=== PATIENT | male | born 2005 | race Two or more races ===

== ENCOUNTER 2025-02-19 11:28 | Emergency (ER) | payer MEDICAID, SELFPAY ==
[2025-02-19 11:29] VITALS: BMI 48.7
[2025-02-19 11:44] VITALS: BP 156/86; PULSE 74; RESP 18; TEMP 36.8; O2SAT 97
--- NOTE | 2025-02-19 11:51 | PD.EDWOUND ---
ED Wound/Laceration-RME/HPI General Chief Complaint: Wound/Laceration Stated Complaint: 4TH DIGIT LAC Time Seen by Provider: 02/19/25 11:40 Arrival date/time: 02/19/25 11:28 20-year-old male presents emergency department t today for complaint of laceration to his hand patient reports he was opening a can of beans and injured his right hand ring finger and index finger Limitations: no limitations Related Data Previous Rx's ?Medication ?Instructions ?Recorded ibuprofen 800 mg tablet 800 mg PO Q6H PRN pain #30 tabs 11/07/19 cyclobenzaprine 5 mg tablet 5 mg PO Q8H PRN muscle pain #20 08/28/23 tabs ibuprofen 600 mg tablet 600 mg PO Q6H PRN pain #30 tabs 08/28/23 Allergies Allergy/AdvReac Type Severity Reaction Status Date / Time No Known Allergies Allergy Verified 02/19/25 11:31 Review of Systems Review of Systems Systems Reviewed: All systems reviewed, normal except as documented Constitutional Constitutional: Reports system reviewed and no additional complaints, except as documented, Denies fever(s) and Denies headache(s) Eyes Eyes: Reports system reviewed and no additional complaints, except as documented and Denies blurry vision ENT Ears, Nose, Mouth, and Throat: Reports system reviewed and no additional complaints, except as documented, Denies headache(s), Denies nasal congestion and Denies nasal discharge Cardiovascular Cardiovascular: Reports system reviewed and no additional complaints, except as documented, Denies chest pain and Denies dyspnea Respiratory Respiratory: Reports system reviewed and no additional complaints, except as documented, Denies chest congestion, Denies cough and Denies dyspnea Gastrointestinal Gastrointestinal: Reports system reviewed and no additional complaints, except as documented and Denies abdominal pain Integumentary/Breasts Skin/Breast: Reports system reviewed and no additional complaints, except as documented, Denies rash and Reports wounds (Laceration right hand) Neurologic Neurologic: Reports system reviewed and no additional complaints, except as documented, Reports as per HPI and Denies headache(s) Past Medical History Past Medical History NEUROLOGIC: Negative Cerebrovascular Accident, Alzheimer's Disease or Meningitis CARDIAC: Negative Myocardial Infarction, Angina or Atherosclerotic Heart Disease RESPIRATORY: Negative Chronic Obstructive Pulmonary Disease (COPD), Emphysema or Cystic Fibrosis GASTROINTESTINAL: Negative Liver Cancer or Pancreatic Cancer GENITOURINARY: Negative Genitourinary Disorders MUSCULOSKELETAL: Negative Muscular Dystrophy or Bone Cancer ENT: Negative Blind or Deafness ENDOCRINE: Negative Endocrine Disorders, Diabetes Mellitus Type 1 or Diabetes Mellitus Type 2 OTHER HISTORY: Negative Down Syndrome or Developmental Delay Social History SMOKING STATUS: Current some day smoker SUBSTANCE USE: does not use ED Exam General Limitations: Present no limitations General appearance: Present alert and in no apparent distress Head Head exam: Present atraumatic Eye Eye exam: Present normal appearance, PERRL and EOMI ENT ENT exam: Present normal exam, normal oropharynx and mucous membranes moist Neck Neck exam: Present normal inspection, full ROM and trachea midline Chest Chest inspection: Present normal inspection and symmetric chest wall rise Respiratory Respiratory exam: Present normal lung sounds bilaterally Cardiovascular Cardiovascular exam: Present regular rate, normal rhythm and normal heart sounds Abdominal Exam Abdominal exam: Present soft and normal bowel sounds Extremities Exam Extremities exam: Present full ROM, tenderness, normal capillary refill and other (Laceration hand fingers); Absent joint swelling Back Exam Back exam: Present normal inspection and full ROM Neurological Exam Neurological exam: Present alert, oriented X3 and CN II-XII intact Psychiatric Psychiatric exam: Present normal affect and normal mood Skin Skin exam: Present warm, dry and other (Laceration right hand fingers) Course Quality Measures none Orders Category Date Time Status Set Up Suture Tray STAT Care 02/19/25 11:52 Completed Wound Care NOW Care 02/19/25 11:52 Completed Lidocaine 1% 20 ml [Xylocaine 1% 20 ML] Med 02/19/25 11:52 Discontinued 20 ml INFL X1 ONE Vital Signs Vital signs: Vital Signs Temperature 98.2 F 02/19/25 11:44 Pulse Rate 74 02/19/25 11:44 Respiratory Rate 18 02/19/25 11:44 Blood Pressure 156/86 H 02/19/25 11:44 Pulse Oximetry (%) 97 02/19/25 11:44 Oxygen Delivery Method Room Air 02/19/25 11:44 O2 saturation 97% on room air within normal limits Procedures -ED Laceration Laceration 1: Site: hand Side (If applicable): right Size (cm): 2 Description: irregular Depth: simple, single layer Local Anesthetic: lidocaine 1% Amount of anesthesia used (mL): 2 Pre-repair: wound explored and irrigated extensively Skin layer closed with: nylon Size (cm): 4-0 Number of sutures: 2 Technique: simple, interrupted Laceration 2: Site: hand Side (If applicable): right Size (cm): 3 Description: linear Depth: simple, single layer Local Anesthetic: lidocaine 1% Amount of anesthesia used (mL): 8 Pre-repair: irrigated extensively Skin layer closed with: nylon Size (cm): 4-0 Number of sutures: 5 Technique: simple, interrupted Wound / Laceration MDM Narrative MDM Narrative:: 20-year-old male presents emergency department t today for complaint of laceration to his hand patient reports he was opening a can of beans and injured his right hand ring finger and index finger On exam patient has laceration right hand ring finger as well as index finger lacerations repaired no evidence of tendon ligamentous injury both laceration on the palmar aspect Patient discharged home in no distress to follow-up with primary care doctor in the next 24 to 48 hours and for any worsening symptoms to return to the ER immediately Patient data External records reviewed:: [facility] previous records Clinical information provided by:: patient Social determinants that could affect healthcare access:: none Patient has the following chronic illnesses:: None How is presenting disease/condition affected by chronic disease/condition?: no chronic disease Evaluation data The following diagnostics were reviewed and interpreted by me:: other (specify) (N/A) Lab and/or radiology exams considered but not ordered:: Consider not ordered Interpretation Summary: N/A Medications / Prescriptions Medications or Prescriptions considered but not ordered:: Given Medication administrations:: Medication Administration History Discontinued Medications Lidocaine HCl (Lidocaine Hcl 1% 20 Ml Vial) 20 ml INFL X1 ONE Stop: 02/19/25 11:53 Last Admin: 02/19/25 12:12 Dose: 20 ml Documented By: OA Comments: USED BY PROVIDER Given Consultations Consultation(s) initiated? (list below): No Diagnosis Wound Differential Diagnosis: laceration, abrasion and avulsion of skin Most likely diagnosis given after review of the tests above:: Laceration Admission Indicated Admission indicated?: not indicated Admission Request Was there a request for admission?: No Disposition Plan Disposition Plan: Discharge Discharge Attestation Discharge Attestation: The patient and all family members were given an opportunity to ask questions and understood the discharge instructions. Discharge instructions specifically effects, indications for sooner follow up or return to the emergency department, and the expected course of current diagnosis. Patient condition: Stable Discharge Plan Plan Patient Disposition: HOME (Self Care) Discharge Disposition comment: Stable Prescriptions/Referrals Prescriptions/Med Rec: No Action ibuprofen 800 mg tablet 800 mg PO Q6H PRN (Reason: pain) Qty: 30 0RF ibuprofen 600 mg tablet 600 mg PO Q6H PRN (Reason: pain) Qty: 30 0RF cyclobenzaprine 5 mg tablet 5 mg PO Q8H PRN (Reason: muscle pain) Qty: 20 0RF Problem List Clinical Impression: Laceration of hand, right Patient/Caregiver Discharge Instructions Education Materials: ED Laceration: All Closures Additional Instructions: Please follow up with your primary care doctor in the next 24-48hrs for any worsening symptoms return here immediately Please have suture removed in 10 days Print Language: Syriac Stand Alone Forms: Larissa Award Info., Patient Portal Info Letter PA/VIRTUAL REALITY SPECIALIST Supervising Physician PA/VIRTUAL REALITY SPECIALIST Supervising Physician: Dr. miles
[2025-02-19] MEDS: LIDOCAINE HCL 1% 20 ML VIAL INFL (12:12)
== END 2025-02-19 12:20 | disposition home or self-care (01) ==
LOC: SERX 12:10
PROVIDERS: Emergency Provider Family Medicine; PCP Family Medicine
DX: S61.210A Laceration without foreign body of right index finger without damage to nail, initial encounter (principal); S61.214A Laceration without foreign body of right ring finger without damage to nail, initial encounter; X58.XXXA Exposure to other specified factors, initial encounter
CPT/HCPCS: 12004; 99283; J3490

== ENCOUNTER 2025-06-06 16:58 | Emergency (ER) | payer MEDICAID, SELFPAY ==
[2025-06-06 16:59] VITALS: BMI 52.3
[2025-06-06 17:58] VITALS: BP 150/85; PULSE 77; RESP 18; TEMP 37.4; O2SAT 97
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
[2025-06-06] MEDS: ACETAMINOPHEN 500 MG TABLET 1000 MG PO (19:01)
[2025-06-06 20:45] VITALS: BP 110/72; PULSE 70; RESP 18; TEMP 37; O2SAT 98
== END 2025-06-06 21:04 | disposition home or self-care (01) ==
PROVIDERS: Emergency Provider Emergency Medicine
DX: S13.4XXA Sprain of ligaments of cervical spine, initial encounter (principal); S00.03XA Contusion of scalp, initial encounter; V89.9XXA Person injured in unspecified vehicle accident, initial encounter
CPT/HCPCS: 70450; 72125; 99284; A9270

== ENCOUNTER → 2025-06-15 | Outpatient (CLI) | payer MEDICAID, SELFPAY ==
--- NOTE | 2025-06-15 14:29 | XR_ITS ---
Examination: Foot, right, 3 views Technique: AP, oblique, lateral views foot, 3 views Date and time of exam: June 15, 2025 1459 hours INDICATIONS: Right heel pain months. FINDINGS: Mild to moderate osteoarthritis first metatarsophalangeal joint. No fracture or dislocation. 2 mm spur posterior calcaneus Benign bony spur off the dorsal anterior surface of the talus 7 mm IMPRESSION: Mild to moderate osteoarthritis first metatarsophalangeal joint 2 mm posterior bony calcaneal spur
== END | disposition home or self-care (01) ==
LOC: CDIM 14:16
PROVIDERS: PCP Family Medicine; Referring Provider Family Medicine; Visit Provider Family Medicine
DX: M19.071 Primary osteoarthritis, right ankle and foot (principal); M77.31 Calcaneal spur, right foot
CPT/HCPCS: 73630